=== PATIENT | male | born 1985 ===

== ENCOUNTER 2018-04-29 12:58 | Day surgery (SDC) | payer OTHER ==
[2018-04-29] VITALS (10 sets, daily range): BP systolic 130–145; BP diastolic 64–84
[~2018-04-29] VITALS: Ht 170.2 cm; Wt 75.7 kg
[~2018-04-29 12:58] MED LIST: Cefazolin 2GM/50ML dext iso,osmotic IVPB IV ONE; NO HOME MEDS; famotidine 20mg tablet PO ONE; ringers solution, lacted 1,000 ML IV SCH
[2018-04-29] MEDS ORDERED: LIDOcaine 1% (10mg/ml) 2ml vial ONE (13:26)
[2018-04-29] MEDS ORDERED: cloNIDine hcl/PF 100mcg/ml inj ONE (17:09)
[2018-04-29] MEDS ORDERED: sevoflurane 250ml liquid IH ONE (17:13)
[2018-04-29] MEDS ORDERED: midazolam 2 mg/2 ml injection ONE ×2 (17:16→17:18)
[2018-04-29] MEDS ORDERED: fentaNYL /PF 50mcg/ml 5ml ampule ONE (17:16)
[2018-04-29] MEDS ORDERED: ceFAZolin 1000mg inj ONE (17:21)
[2018-04-29] MEDS ORDERED: propofol inj 20 ML IV ONE (17:36)
[2018-04-29] MEDS ORDERED: dexamethasone sod phosphate 4mg/ml inj. ONE (17:36)
[2018-04-29] MEDS ORDERED: ROPIVAcaine 0.5% (5mg/ml) 30ml vial ONE (17:36)
[2018-04-29] MEDS ORDERED: glycopyrrolate 0.2mg/ml inj ONE (18:23)
[2018-04-29] MEDS ORDERED: ePHEDrine 50MG/ML INJ. ONE (18:23)
[2018-04-29] MEDS ORDERED: ringers solution, lacted 1,000 ML IV SCH (18:31)
[2018-04-29] MEDS ORDERED: proCHLORperazine 10 MG/2 ml inj IV PRN (18:35)
[2018-04-29] MEDS ORDERED: meperidine/PF 25mg/ml syringe IV PRN ×3 (18:35)
[2018-04-29] MEDS ORDERED: morphine 4 MG/ML inj SYRINge IV PRN ×2 (18:35)
[2018-04-29] MEDS ORDERED: ondansetron/PF 4mg/2ml inj IV PRN (18:35)
[2018-04-29] MEDS ORDERED: ondansetron/PF 4mg/2ml inj ONE (18:46)
== END 2018-04-29 20:15 ==
LOC: PAS 12:58 → EEVIPCON 13:15 → PAS 20:15
PROVIDERS: ATTEND Orthopaedic Surgery
DX: S83.511A Sprain of anterior cruciate ligament of right knee, initial encounter (principal); S83.241A Other tear of medial meniscus, current injury, right knee, initial encounter; S83.281A Other tear of lateral meniscus, current injury, right knee, initial encounter; Z87.891 Personal history of nicotine dependence; X58.XXXA Exposure to other specified factors, initial encounter; Y93.89 Activity, other specified; Y92.89 Other specified places as the place of occurrence of the external cause; Y99.8 Other external cause status
CPT/HCPCS: 29881; 29888; A6449; C1713; C1750; J0690; J0735; J1100; J2175; J2250; J2405; J2704; J2795; J3010; J3490; J7030; J7120; L1832; A7000